=== PATIENT | male | born 1995 | race Two or more races ===

== ENCOUNTER 2018-10-06 21:20 | Emergency (ER) | payer SELFPAY ==
[~2018-10-06] VITALS: Ht 185.4 cm; Wt 99.8 kg
[2018-10-06 21:24] VITALS: BP 138/68
[2018-10-06] MEDS ORDERED: DEXAMETHASONE 4 MG TABLET ONE ×2 (21:59→22:05)
[2018-10-06] MEDS ORDERED: ACETAMINOPHEN 500 MG TABLET ONE (21:59)
[2018-10-06] MEDS ORDERED: AZITHROMYCIN 500 MG TABLET ONE (21:59)
[2018-10-06] MEDS ORDERED: ACETAMINOPHEN 500 MG TABLET PO ONE (22:00)
[2018-10-06] MEDS ORDERED: AZITHROMYCIN 500 MG TABLET PO ONE (22:00)
[2018-10-06] MEDS ORDERED: DEXAMETHASONE 4 MG TABLET PO ONE (22:00)
--- NOTE | 2018-10-06 22:03 | NUR ---
PT MEDICATED PER EMAR. 5 RIGHTS ADDRESSED.
--- NOTE | 2018-10-06 22:24 | NUR ---
Patient/Caregiver given discharge instructions and they have confirmed that they understand the instructions. Patient ambulatory with steady gait.
== END 2018-10-06 22:26 | disposition home or self-care (01) ==
LOC: ED 22:20
DX: J02.0 Streptococcal pharyngitis (principal); R50.81 Fever presenting with conditions classified elsewhere; F17.210 Nicotine dependence, cigarettes, uncomplicated
CPT/HCPCS: 99284